=== PATIENT | female | born 1955 | race Two or more races ===

== ENCOUNTER 2022-10-03 11:10 | Inpatient (IN) | payer OTHER ==
[~2022-10-03] VITALS: Ht 160 cm; Wt 63.5 kg
--- NOTE | 2022-10-03 11:25 | NUR ---
SE RECIBE PTE ALERTA ORIENTADA X3.PTE REFIERE TENER DOLOR ABDOMINAL HARJIT.NO PRESENTA VOMITOS,NAUSEAS AL MOMENTO.SE HERRERA S/V Y SE COLOCA EN OBSERVACION.
[2022-10-03] MEDS ORDERED: IRBESARTAN-HCT1 EACH PO (11:27)
[2022-10-03] MEDS ORDERED: SIMVASTATIN20 MG PO (11:27)
[2022-10-03] MEDS ORDERED: METOPROLOL TART50 MG PO (11:27)
--- NOTE | 2022-10-03 11:59 | NUR ---
SE RECIBE PTE ALERTA ORIENTADA X3.SE HERRERA MUESTRAS DE LABORATORIO USANDO MEDIDAS ASEPTICAS.SE ENTREGA CONSTRASTE PO SE ORIENTA SOBRE ESTUDIO DE CT.SE ORIENTA PTE SOBRE OBJETIVO DE [place] MEDICO.MANEJADA POR INDIO HOOKER.
== END 2022-10-16 19:40 | disposition home or self-care (01) | DRG 391 ==
LOC: ER 11:10 → MEDI 21:26
PROVIDERS: ADMIT Specialist; ATTEND Specialist
PROC: BW21YZZ Computerized Tomography (CT Scan) of Abdomen and Pelvis using Other Contrast (ICD-10-PCS; 2022-10-03)
PROC: 0W9F30Z Drainage of Abdominal Wall with Drainage Device, Percutaneous Approach (ICD-10-PCS; principal; 2022-10-07)
PROC: 02HV33Z Insertion of Infusion Device into Superior Vena Cava, Percutaneous Approach (ICD-10-PCS; 2022-10-08)
PROC: BW21YZZ Computerized Tomography (CT Scan) of Abdomen and Pelvis using Other Contrast (ICD-10-PCS; 2022-10-14)
DX: K57.20 Diverticulitis of large intestine with perforation and abscess without bleeding (principal); A41.9 Sepsis, unspecified organism; L02.211 Cutaneous abscess of abdominal wall; N32.1 Vesicointestinal fistula; I10 Essential (primary) hypertension; E78.5 Hyperlipidemia, unspecified; E87.6 Hypokalemia; B96.20 Unspecified Escherichia coli [E. coli] as the cause of diseases classified elsewhere; B95.2 Enterococcus as the cause of diseases classified elsewhere; B96.89 Other specified bacterial agents as the cause of diseases classified elsewhere; Z20.822 Contact with and (suspected) exposure to COVID-19

== ENCOUNTER 2022-10-21 12:12 | Inpatient (IN) | payer OTHER ==
[~2022-10-21] VITALS: Ht 160 cm; Wt 73.9 kg
[~2022-10-21 12:12] MED LIST: IRBESARTAN-HCT1 EACH PO; METOPROLOL TART50 MG PO; SIMVASTATIN20 MG PO
[2022-10-22] MEDS ORDERED: FAMOTIDINE20 MG (08:51)
== END 2022-11-04 13:09 | disposition home or self-care (01) | DRG 330 ==
LOC: ER 12:12 → MEDJ 22:44 → MEDI 22:44 → MEDJ 10-25 11:08
PROVIDERS: Surgery; ADMIT Specialist; ATTEND Specialist
PROC: BW21YZZ Computerized Tomography (CT Scan) of Abdomen and Pelvis using Other Contrast (ICD-10-PCS; 2022-10-21)
PROC: 0W9F30Z Drainage of Abdominal Wall with Drainage Device, Percutaneous Approach (ICD-10-PCS; 2022-10-23)
PROC: 02HV33Z Insertion of Infusion Device into Superior Vena Cava, Percutaneous Approach (ICD-10-PCS; 2022-10-23)
PROC: 3E0436Z Introduction of Nutritional Substance into Central Vein, Percutaneous Approach (ICD-10-PCS; 2022-10-23)
PROC: BW21YZZ Computerized Tomography (CT Scan) of Abdomen and Pelvis using Other Contrast (ICD-10-PCS; 2022-10-28)
PROC: 0D1B4Z4 Bypass Ileum to Cutaneous, Percutaneous Endoscopic Approach (ICD-10-PCS; principal; 2022-10-29 18:00)
DX: K57.20 Diverticulitis of large intestine with perforation and abscess without bleeding (principal); L02.211 Cutaneous abscess of abdominal wall; I10 Essential (primary) hypertension; Z74.01 Bed confinement status

== ENCOUNTER → 2023-02-12 06:00 | Outpatient (CLI) | payer OTHER ==
[~2023-02-12] VITALS: Ht 160 cm; Wt 61.2 kg
[~2023-02-12 06:00] MED LIST changes: +BAYER PO; +ECOTRIN81 MG; +FAMOTIDINE20 MG; +INTESTINEX680 M1 PO
[2023-02-12 13:36] LABS: URINE APPEARANCE Clear; URINE BILIRRUBIN Negative (NEGATIVE); URINE BLOOD Negative; URINE COLOR Yellow; URINE GLUCOSE Negative (NEGATIVE); URINE LEUKOCYTE Small; URINE NITRATE Negative; URINE PROTEIN Negative (NEGATIVE); URINE UROBILINOGEN 0.2 E.U./dl
[2023-02-12 13:37] LABS: URINE BACTERIA 184.9 uL (0.0-1933); URINE EPITHELIAL CELLS 25.5 uL (0.0-38.8); URINE RBC 5.6 uL (0.0-20.8); URINE WBC 46.1 uL (0.0-23.2)
[2023-02-12 13:39] LABS: HEMATOCRIT 37.8 % (36.0-45.00); HEMOGLOBIN 12.9 g/dL (12.0-15.00); MEAN CELL VOLUME 86.8 fL (80.00-100.00); MEAN CORPUSCULAR HEMOGLOBIN 29.6 pg (27.00-32.0); MEAN CORPUSCULAR HGB CONC 34.1 g/dl (32.0-36.0); PLATELET COUNT 331 K/uL (150-450); RED BLOOD COUNT 4.36 M/uL (4.00-6.00); RED CELL DISTRIBUTION WIDTH 15.5 % (11.5-14.5)
[2023-02-12 14:05] LABS: INR 0.98; PARTIAL THROMBOPLASTIN TIME 27.6 SECONDS (22.0-34.0); PROTHROMBIN TIME 10.3 SECONDS (9.0-11.5)
[2023-02-12 14:09] LABS: ALBUMIN 3.5 gm/dL (3.4-5.0); BILIRUBIN TOTAL 0.44 mg/dL (0.3-1.2); CALCIUM 9.7 mg/dL (8.5-10.1); CREATININE SERUM 0.73 mg/dL (0.55-1.02); GFR 79.76; GLOBULINA 4.4 G/DL (2.4-3.5); PHOSPHOROUS 3.8 mg/dL (2.5-4.9); POTASSIUM 4.26 mEq/L (3.5-5.1); TOTAL PROTEIN 7.9 gm/dL (6.4-8.2)
== END | disposition home or self-care (01) ==
LOC: LAB 06:00 → SURH 02-18 12:30 → EDSTATUS 02-18 12:30
PROVIDERS: ATTEND Surgery
DX: Z01.810 Encounter for preprocedural cardiovascular examination (principal); Z01.811 Encounter for preprocedural respiratory examination; Z01.812 Encounter for preprocedural laboratory examination; Z20.822 Contact with and (suspected) exposure to COVID-19; K57.20 Diverticulitis of large intestine with perforation and abscess without bleeding; K65.1 Peritoneal abscess; Z93.2 Ileostomy status; R10.32 Left lower quadrant pain; I10 Essential (primary) hypertension

== ENCOUNTER 2023-02-19 10:48 | Inpatient (IN) | payer OTHER ==
[~2023-02-19] VITALS: Ht 160 cm; Wt 61.2 kg
[~2023-02-19 10:48] MED LIST changes: -ECOTRIN81 MG
--- NOTE | 2023-02-19 11:39 | NUR ---
SE RECIBE PTE ALERTA Y ORIENTADO X3 PTE REFIERE TENER DOLOR PELVICO 4 WEI LA LA MISMA MARTA REFERIDO MEDICA DE JAMMIE RICHARDSON. SE OBSREVA AREA ABDOMINAL CON ILEOSTOMIA Y AREA PELVICA UN HEMATOMA COLOR PINEDA Y CALIENTE AL TACTO SE HERRERA VITALES Y SE JUNA EN OBSERVACION.
--- NOTE | 2023-02-19 13:21 | NUR ---
EVALUADA PTE. POR DR. ALFONSO. SE ORIENTA SOBRE TRATAMIENTO Y MEDICAMENTO EL CUAL SE ADM. IM EN GLUTEO [R] CON TECNICAS ASEPTICAS.MUESTRAS TOMADAS Y SE ENVIAN AL LABORATORIO, SE HACEN ARREGLOS PARA CT SCAN. SE OBSERVA PTE. CON COLOSTOMIA Y DEBAJO DE LA COLOSTOMIA SE OBSERVA NORMA RIJIZA, CALIENTE, DURA Y DOLOROSA AL TACTO.SE JUAN PTE. EN LEONORA CON BARRANDAS ELEVADAS .
[2023-02-19 13:44] LABS: HEMOGLOBIN 13.1 g/dL (12.0-15.00); MEAN CELL VOLUME 87.6 fL (80.00-100.00); MEAN CORPUSCULAR HEMOGLOBIN 28.8 pg (27.00-32.0); MEAN CORPUSCULAR HGB CONC 32.9 g/dl (32.0-36.0); PLATELET COUNT 360 K/uL (150-450); RED BLOOD COUNT 4.56 M/uL (4.00-6.00); RED CELL DISTRIBUTION WIDTH 14.8 % (11.5-14.5)
[2023-02-19 14:35] LABS: CALCIUM 9.8 mg/dL (8.5-10.1); CREATININE SERUM 0.91 mg/dL (0.55-1.02); GFR 61.85; POTASSIUM 4.47 mEq/L (3.5-5.1)
[2023-02-19 14:50] LABS: PH,URINE 5.5 (5.0-8.0); URINE APPEARANCE Cloudy; URINE BILIRRUBIN Small (NEGATIVE); URINE BLOOD Negative; URINE COLOR Dark Yellow; URINE GLUCOSE Negative (NEGATIVE); URINE LEUKOCYTE Moderate; URINE NITRATE Negative; URINE PROTEIN 30 (NEGATIVE); URINE UROBILINOGEN 0.2 E.U./dl
[2023-02-19 14:55] LABS: URINE BACTERIA 5785.8 uL (0.0-1933); URINE EPITHELIAL CELLS 100.3 uL (0.0-38.8); URINE RBC 23.7 uL (0.0-20.8); URINE WBC 341.9 uL (0.0-23.2)
[2023-02-19 15:42] LABS: URINE MUCUS MODERATE
[2023-02-19 15:43] LABS: URINE CRYSTALS FEW /HPF
--- NOTE | 2023-02-19 17:56 | NUR ---
PTE RE-EVALUADA POR . SE ORIENTA SOBRE ORDENES DE [place] REFIERE COMPRENDER. SE CANALIZA BRE ABJO MEDIDAS ASEPTICAS, AREA LOBRE DE EDEMA Y ERITEMA. SE ADMINISTRAN MEDICAMENTOS, BAJO MEDIDAS ASEPTICAS. PENDIENTE CONSULTA CON MEDICINA INTERNA.
[2023-02-19 21:15] LABS: INR 1.03; PARTIAL THROMBOPLASTIN TIME 28.5 SECONDS (22.0-34.0); PROTHROMBIN TIME 10.8 SECONDS (9.0-11.5)
[2023-02-20] MEDS ORDERED: ECOTRIN81 MG (09:15)
[2023-02-20 23:44] LABS: CALCIUM 8.8 mg/dL (8.5-10.1); CHOL HDL RATIO 4.5 (0-5.0); CREATININE SERUM 0.66 mg/dL (0.55-1.02); GFR 89.6; POTASSIUM 4.93 mEq/L (3.5-5.1)
[2023-02-23 08:42] LABS: HEMATOCRIT 33.1 % (36.0-45.00); HEMOGLOBIN 10.9 g/dL (12.0-15.00); MEAN CELL VOLUME 90.6 fL (80.00-100.00); MEAN CORPUSCULAR HEMOGLOBIN 29.7 pg (27.00-32.0); MEAN CORPUSCULAR HGB CONC 32.8 g/dl (32.0-36.0); PLATELET COUNT 411 K/uL (150-450); RED BLOOD COUNT 3.65 M/uL (4.00-6.00); RED CELL DISTRIBUTION WIDTH 14.5 % (11.5-14.5)
[2023-02-23 09:00] LABS: CALCIUM 8.8 mg/dL (8.5-10.1); CREATININE SERUM 0.51 mg/dL (0.55-1.02); GFR 120.65; MAGNESIUM 2.1 mg/dL (1.8-2.4); PHOSPHOROUS 3.4 mg/dL (2.5-4.9); POTASSIUM 5.37 mEq/L (3.5-5.1)
[2023-02-24 06:21] LABS: HEMATOCRIT 32.8 % (36.0-45.00); HEMOGLOBIN 11.4 g/dL (12.0-15.00); MEAN CELL VOLUME 87.4 fL (80.00-100.00); MEAN CORPUSCULAR HEMOGLOBIN 30.3 pg (27.00-32.0); MEAN CORPUSCULAR HGB CONC 34.7 g/dl (32.0-36.0); PLATELET COUNT 459 K/uL (150-450); RED BLOOD COUNT 3.75 M/uL (4.00-6.00); RED CELL DISTRIBUTION WIDTH 14.4 % (11.5-14.5)
[2023-02-24 06:46] LABS: CALCIUM 8.7 mg/dL (8.5-10.1); CREATININE SERUM 0.44 mg/dL (0.55-1.02); GFR 143.06; PHOSPHOROUS 3.3 mg/dL (2.5-4.9); POTASSIUM 5.09 mEq/L (3.5-5.1)
[2023-02-24 06:47] LABS: C-REACTIVE PROTEIN 4.13 MG/DL (0.00-0.29)
[2023-02-24 07:12] LABS: ERYTHROCYTE SEDIMENTATION RATE 80 mm/hr
[2023-02-25 21:50] LABS: HEMATOCRIT 37.8 % (36.0-45.00); HEMOGLOBIN 12.2 g/dL (12.0-15.00); MEAN CELL VOLUME 88.7 fL (80.00-100.00); MEAN CORPUSCULAR HEMOGLOBIN 28.7 pg (27.00-32.0); MEAN CORPUSCULAR HGB CONC 32.3 g/dl (32.0-36.0); PLATELET COUNT 510 K/uL (150-450); RED BLOOD COUNT 4.26 M/uL (4.00-6.00); RED CELL DISTRIBUTION WIDTH 14.5 % (11.5-14.5)
[2023-02-25 22:03] LABS: ALBUMIN 2.8 gm/dL (3.4-5.0); CALCIUM 8.6 mg/dL (8.5-10.1); GFR 274.69; MAGNESIUM 1.9 mg/dL (1.8-2.4); PHOSPHOROUS 3.6 mg/dL (2.5-4.9); POTASSIUM 4.18 mEq/L (3.5-5.1)
[2023-02-25 22:09] LABS: CREATININE SERUM 0.25 mg/dL (0.55-1.02)
[2023-02-26 06:32] LABS: HEMATOCRIT 33.3 % (36.0-45.00); HEMOGLOBIN 11.1 g/dL (12.0-15.00); MEAN CELL VOLUME 88.5 fL (80.00-100.00); MEAN CORPUSCULAR HEMOGLOBIN 29.4 pg (27.00-32.0); MEAN CORPUSCULAR HGB CONC 33.2 g/dl (32.0-36.0); PLATELET COUNT 467 K/uL (150-450); RED BLOOD COUNT 3.76 M/uL (4.00-6.00); RED CELL DISTRIBUTION WIDTH 14.4 % (11.5-14.5)
[2023-02-26 06:40] LABS: ALBUMIN 2.3 gm/dL (3.4-5.0); CALCIUM 8.5 mg/dL (8.5-10.1); CREATININE SERUM 0.57 mg/dL (0.55-1.02); GFR 106.12; PHOSPHOROUS 3.6 mg/dL (2.5-4.9); POTASSIUM 5.28 mEq/L (3.5-5.1)
[2023-02-27 06:34] LABS: HEMATOCRIT 28.7 % (36.0-45.00); HEMOGLOBIN 9.7 g/dL (12.0-15.00); MEAN CELL VOLUME 89.3 fL (80.00-100.00); MEAN CORPUSCULAR HEMOGLOBIN 30.1 pg (27.00-32.0); MEAN CORPUSCULAR HGB CONC 33.7 g/dl (32.0-36.0); PLATELET COUNT 407 K/uL (150-450); RED BLOOD COUNT 3.21 M/uL (4.00-6.00); RED CELL DISTRIBUTION WIDTH 14.5 % (11.5-14.5)
[2023-02-27 07:00] LABS: CALCIUM 8.3 mg/dL (8.5-10.1); CREATININE SERUM 0.48 mg/dL (0.55-1.02); GFR 129.4; POTASSIUM 5.18 mEq/L (3.5-5.1)
== END 2023-03-01 17:42 | disposition home or self-care (01) | DRG 330 ==
LOC: ER 10:48 → SURH 20:11
PROVIDERS: General Practice; Internal Medicine; Internal Medicine Geriatric Medicine; ADMIT Surgery; ATTEND Surgery
PROC: BW21ZZZ Computerized Tomography (CT Scan) of Abdomen and Pelvis (ICD-10-PCS; 2023-02-19)
PROC: 0W9F30Z Drainage of Abdominal Wall with Drainage Device, Percutaneous Approach (ICD-10-PCS; 2023-02-20)
PROC: 3E0336Z Introduction of Nutritional Substance into Peripheral Vein, Percutaneous Approach (ICD-10-PCS; 2023-02-20)
PROC: 02HV33Z Insertion of Infusion Device into Superior Vena Cava, Percutaneous Approach (ICD-10-PCS; 2023-02-22)
PROC: B246ZZZ Ultrasonography of Right and Left Heart (ICD-10-PCS; 2023-02-24)
PROC: 0DBP4ZZ Excision of Rectum, Percutaneous Endoscopic Approach (ICD-10-PCS; 2023-02-25)
PROC: 0TN74ZZ Release Left Ureter, Percutaneous Endoscopic Approach (ICD-10-PCS; 2023-02-25)
PROC: 0DJD8ZZ Inspection of Lower Intestinal Tract, Via Natural or Artificial Opening Endoscopic (ICD-10-PCS; 2023-02-25)
PROC: 0DTN4ZZ Resection of Sigmoid Colon, Percutaneous Endoscopic Approach (ICD-10-PCS; principal; 2023-02-25 13:00)
DX: K57.20 Diverticulitis of large intestine with perforation and abscess without bleeding (principal); I25.810 Atherosclerosis of coronary artery bypass graft(s) without angina pectoris; L02.211 Cutaneous abscess of abdominal wall; L03.113 Cellulitis of right upper limb; E87.5 Hyperkalemia; D75.838 Other thrombocytosis; N32.89 Other specified disorders of bladder; I11.9 Hypertensive heart disease without heart failure; B96.29 Other Escherichia coli [E. coli] as the cause of diseases classified elsewhere; B95.2 Enterococcus as the cause of diseases classified elsewhere; B96.6 Bacteroides fragilis [B. fragilis] as the cause of diseases classified elsewhere; Z95.1 Presence of aortocoronary bypass graft; Z87.891 Personal history of nicotine dependence; Z93.2 Ileostomy status

== ENCOUNTER 2023-05-15 08:45 | Inpatient (IN) | payer OTHER ==
[~2023-05-15] VITALS: Ht 160 cm; Wt 63.5 kg
[~2023-05-15 08:45] MED LIST changes: +ECOTRIN81 MG
[2023-05-25] MEDS ORDERED: ONDANSETRON ODT8 MG PO (01:56)
[2023-05-25] MEDS ORDERED: PEPCID AC20 MG PO (01:56)
[2023-05-27 17:20] LABS: HEMATOCRIT 44.3 % (36.0-45.00); HEMOGLOBIN 14.8 g/dL (12.0-15.00); MEAN CELL VOLUME 87.8 fL (80.00-100.00); MEAN CORPUSCULAR HEMOGLOBIN 29.3 pg (27.00-32.0); MEAN CORPUSCULAR HGB CONC 33.4 g/dl (32.0-36.0); PLATELET COUNT 324 K/uL (150-450); RED BLOOD COUNT 5.05 M/uL (4.00-6.00); RED CELL DISTRIBUTION WIDTH 14.7 % (11.5-14.5)
[2023-05-27 17:37] LABS: ALBUMIN 3.4 gm/dL (3.4-5.0); CALCIUM 8.8 mg/dL (8.5-10.1); CREATININE SERUM 0.99 mg/dL (0.55-1.02); GFR 56.12; MAGNESIUM 1.7 mg/dL (1.8-2.4); PHOSPHOROUS 3.1 mg/dL (2.5-4.9); POTASSIUM 4.49 mEq/L (3.5-5.1)
[2023-05-28 06:52] LABS: HEMATOCRIT 41.2 % (36.0-45.00); HEMOGLOBIN 13.8 g/dL (12.0-15.00); MEAN CELL VOLUME 87.2 fL (80.00-100.00); MEAN CORPUSCULAR HEMOGLOBIN 29.3 pg (27.00-32.0); MEAN CORPUSCULAR HGB CONC 33.6 g/dl (32.0-36.0); PLATELET COUNT 317 K/uL (150-450); RED BLOOD COUNT 4.72 M/uL (4.00-6.00); RED CELL DISTRIBUTION WIDTH 14.9 % (11.5-14.5)
[2023-05-28 06:58] LABS: ALBUMIN 3.1 gm/dL (3.4-5.0); CALCIUM 8.8 mg/dL (8.5-10.1); CREATININE SERUM 0.79 mg/dL (0.55-1.02); GFR 72.81; MAGNESIUM 1.8 mg/dL (1.8-2.4); PHOSPHOROUS 2.8 mg/dL (2.5-4.9); POTASSIUM 4.56 mEq/L (3.5-5.1)
[2023-06-01 08:26] LABS: CALCIUM 8.2 mg/dL (8.5-10.1); CREATININE SERUM 0.4 mg/dL (0.55-1.02); GFR 159.7; MAGNESIUM 1.6 mg/dL (1.8-2.4); PHOSPHOROUS 3.2 mg/dL (2.5-4.9); POTASSIUM 3.09 mEq/L (3.5-5.1)
[2023-06-01] MEDS ORDERED: ACETAMINOPHEN500 M2 PO (08:36)
[2023-06-01] MEDS ORDERED: NEURONTIN300 MG PO (08:36)
[2023-06-01] MEDS ORDERED: INTESTINEX680 M1 PO (08:37)
[2023-06-01] MEDS ORDERED: PRILOSEC OTC20 MG PO (08:37)
== END 2023-06-01 10:00 | disposition home or self-care (01) | DRG 347 ==
LOC: SURG 05-27 08:15 → O/R 05-27 08:15 → SURG 05-27 08:45
PROVIDERS: Internal Medicine Geriatric Medicine; ADMIT Surgery; ATTEND Surgery
PROC: 0DBB4ZZ Excision of Ileum, Percutaneous Endoscopic Approach (ICD-10-PCS; principal; 2023-05-27 12:30)
DX: Z43.2 Encounter for attention to ileostomy (principal); K65.1 Peritoneal abscess; K57.20 Diverticulitis of large intestine with perforation and abscess without bleeding; R10.32 Left lower quadrant pain; I10 Essential (primary) hypertension

== ENCOUNTER 2023-05-24 22:13 | Emergency (ER) | payer OTHER ==
[~2023-05-24] VITALS: Ht 160 cm; Wt 61.2 kg
[2023-05-24 23:55] LABS: HEMATOCRIT 41.3 % (36.0-45.00); MEAN CELL VOLUME 87.8 fL (80.00-100.00); MEAN CORPUSCULAR HEMOGLOBIN 29.6 pg (27.00-32.0); MEAN CORPUSCULAR HGB CONC 33.8 g/dl (32.0-36.0); PLATELET COUNT 307 K/uL (150-450); RED BLOOD COUNT 4.71 M/uL (4.00-6.00); RED CELL DISTRIBUTION WIDTH 14.6 % (11.5-14.5)
[2023-05-25 00:49] LABS: ALBUMIN 3.5 gm/dL (3.4-5.0); BILIRUBIN TOTAL 0.73 mg/dL (0.3-1.2); CALCIUM 9.7 mg/dL (8.5-10.1); CREATININE SERUM 0.77 mg/dL (0.55-1.02); GLOBULINA 4.1 G/DL (2.4-3.5); POTASSIUM 4.41 mEq/L (3.5-5.1); TOTAL PROTEIN 7.6 gm/dL (6.4-8.2)
[2023-05-25] MEDS ORDERED: ONDANSETRON ODT8 MG PO (01:56)
[2023-05-25] MEDS ORDERED: PEPCID AC20 MG PO (01:56)
== END 2023-05-25 02:40 | disposition home or self-care (01) ==
LOC: ER 22:13
PROVIDERS: General Practice
DX: K29.70 Gastritis, unspecified, without bleeding (principal); R10.9 Unspecified abdominal pain; I10 Essential (primary) hypertension